=== PATIENT | male | born 1985 ===

== ENCOUNTER 2024-03-27 09:11 | Day surgery (SDC) | payer OTHER ==
[~2024-03-27] VITALS: Ht 172.7 cm; Wt 76.1 kg
[~2024-03-27 09:11] MED LIST: Lactated Ringer's 1,000 ML IV ONE; propofoL 50 ML IV ONE
[2024-03-27] MEDS ORDERED: Lactated Ringer's 1,000 ML IV ONE (10:51)
--- NOTE | 2024-03-27 10:51 | NUR ---
03/27/24 1051 Monse Neil SCHEDULE STATED PT'S DAUGHTER WOULD BE BANKRUPTCY MANAGER. PT DENIED NEEDING AN BANKRUPTCY MANAGER. PT STATED HE UNDERSTOOD AZERI "JUST FINE". PT APPEARED TO UNDERSTAND AND COMMUNICATE APPROPRIATELY WITHOUT ANY LAGUAGE BARRIERS NOTED.
== END 2024-03-27 11:42 | disposition home or self-care (01) ==
LOC: ORSCSDS 09:11
PROVIDERS: Specialist
PROC: 0DB68ZX Excision of Stomach, Via Natural or Artificial Opening Endoscopic, Diagnostic (ICD-10-PCS; principal; 2024-03-27 10:45)
PROC: 0DB98ZX Excision of Duodenum, Via Natural or Artificial Opening Endoscopic, Diagnostic (ICD-10-PCS; principal; 2024-03-27 10:45)
PROC: 0DB58ZX Excision of Esophagus, Via Natural or Artificial Opening Endoscopic, Diagnostic (ICD-10-PCS; principal; 2024-03-27 10:45)
DX: R10.13 Epigastric pain (principal); K44.9 Diaphragmatic hernia without obstruction or gangrene; K29.50 Unspecified chronic gastritis without bleeding; K29.80 Duodenitis without bleeding; Z79.899 Other long term (current) drug therapy
CPT/HCPCS: 88305; 88341; 88342; J2704; J7120